=== PATIENT | female | born 1990 | race Two or more races ===

== ENCOUNTER 2022-04-28 01:13 | Emergency (ER) | payer OTHER ==
[~2022-04-28] VITALS: Ht 157.5 cm; Wt 63.5 kg
[~2022-04-28 01:13] MED LIST: NABUMETONE750 MG PO; NORFLEX100MG PO; ROBAXIN-750750 MG PO; VOLTAREN-XR100 MG PO
[2022-04-28] MEDS ORDERED: DRIZALMA SPRINK30 MG PO (01:43)
[2022-04-28] MEDS ORDERED: VICODIN HP 10-1 EACH PO (01:44)
[2022-04-28] MEDS ORDERED: BUPROPION XL450 MG PO (01:45)
[2022-04-28] MEDS ORDERED: NAPROXEN500 MG PO (01:45)
[2022-04-28] MEDS ORDERED: RELAFEN DS1000 MG PO (06:50)
[2022-04-28] MEDS ORDERED: NORFLEX100MG PO (06:50)
== END 2022-04-28 07:14 ==
LOC: ER
DX: M54.50 Low back pain, unspecified (principal); M62.830 Muscle spasm of back